=== PATIENT | female | born 1970 ===

== ENCOUNTER 2020-10-05 16:57 | Emergency (ER) | payer OTHER ==
[~2020-10-05] VITALS: Ht 157.5 cm; Wt 70.8 kg
[2020-10-05] MEDS ORDERED: ACETAMINOPHEN 325 MG TAB ONE (17:41)
[2020-10-05] MEDS ORDERED: ACETAMINOPHEN 325 MG TAB PO ONE (17:45)
[2020-10-05] MEDS ORDERED: SODIUM CHLORIDE 0.9% 1000ML 1,000 ML IV SCH (18:00)
[2020-10-05] MEDS ORDERED: IOPAMIDOL 370 MG/ML 200 ML INFUS..BTL INJ ONE (18:03)
[2020-10-05] MEDS ORDERED: SODIUM CHLORIDE 0.9% 50ML 50 ML ONE (18:04)
--- NOTE | 2020-10-05 18:27 | Emergency Department Note ---
History of Present Illnes History of Present Illness Chief Complaint: General Medicine Complaints History of Present Illness This is a 50 year old female, hypertension, hyperlipidemia, NIDDM, hypothyroidism who presents with urinary frequency and dysuria for the past 5 days, abdominal distention, and intermittent fever and chills for the past 3 days. Patient's temp on arrival is 101.6. She denies any cough, upper respiratory symptoms, chest pain, shortness of breath, nausea, vomiting, myalgias, or loss of sense of taste or smell. He is also experiencing some bilateral back pain from mid back down to the lower lumbar area, involving the bilateral paraspinal muscles, without vertebral or midline pain. The pain does not radiate into the buttocks or legs. 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 Pt had a COVID test performed at [facility] yesterday, and will receive the results in 2 days. Historian: Patient Arrival Mode: Car Assistant Produce Manager Required: No Onset (how long ago): day(s) (5) Location: generalized, urine, abdomen, back Quality: aching Radiation: Reports back, Reports abdomen; Denies neck, Denies extremity Onset quality: sudden Duration (how long): day(s) (5) Timing of current episode: constant Progression: unchanged Chronicity: new Context: Denies recent illness, Denies recent surgery, Denies trauma/injury Relieving factors: none Exacerbating factors: none Associated symptoms: Reports fever/chills, Reports malaise; Denies chest pain, Denies cough, Denies diaphoresis, Denies headaches, Denies nausea/vomiting, Denies shortness of breath, Denies weakness Treatments prior to arrival: none 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 Any updates have been documented here. (GARRET MARADIAGA MD) Past Medical History Recent Fever: Yes Clinical Suspicion of Infectio: Yes New/Unexplained Change in Ment: No Past Medical History: Hypertension, Diabetes, Hypothyroidism, Hyperlipedemia Past Surgical History: Cholecysctectomy, (x1) (GARRET MARADIAGA MD) Social History Smoking Cessation: Never Smoker Alcohol Use: None Any Illegal Drug Use: No TB Exposure/Symptoms: No Physically hurt or threatened: No (GARRET MARADIAGA MD) Family History Family history of heart diseas: No (GARRET MARADIAGA MD) Other Last Tetanus: UTD Any Pre-Existing Lines (PICC,: No Is patient up to date on immun: Yes (GARRET MARADIAGA MD) Review of Systems Review of Systems Constitutional: Reports chills, Reports fever EENTM: Denies ear pain, Denies throat pain Cardiovascular: Denies chest pain, Denies palpitations Respiratory: Denies cough, Denies dyspnea Gastrointestinal: Denies constipation, Denies diarrhea, Denies nausea, Denies vomiting, Denies other (abdominal distension) Genitourinary: Reports frequency; Denies hematuria Musculoskeletal: Reports back pain (paraspinal muscles from mid back, down to lower lumbar) Integumentary: Denies change in color, Denies rash Neurological: Denies headache, Denies numbness, Denies tingling Psychological: Reports no symptoms Endocrine: Reports no symptoms Hematological/Lymphatic: Reports no symptoms Review of other systems: All other systems negative (GARRET MARADIAGA MD) Endocrine: Reports increased urination Hematological/Lymphatic: Denies easy bruising (JOHNNA WYNN MD) Physical Exam Related Data Allergies: Coded Allergies: No Known Allergies (Unverified , 10/05/20) Triage Vital Signs Vital Signs Date Time Temp Pulse Resp B/P (MAP) Pulse Ox O2 Delivery O2 Flow Rate FiO2 10/05/20 17:19 101.6 121 16 157/102 98 Room Air Vital signs reviewed: Yes (GARRET MARADIAGA MD) Physical Exam CONSTITUTIONAL Constitutional: Present well-developed, Present well-nourished, Present obese; Absent distressed, Absent ill appearing HENT HENT: Present normocephalic, Present atraumatic, Present oropharynx clear/moist, Present nose normal; Absent nasal congestion, Absent rhinorrhea HENT L/R: Present left TM normal, Present right TM normal, Present left ext ear normal, Present right ext ear normal EYES Eyes: Reports PERRL, Reports conjunctivae normal NECK Neck: Present ROM normal, Present supple; Absent cervical adenopathy PULMONARY Pulmonary: Present effort normal, Present breath sounds normal CARDIOVASCULAR Cardiovascular: Present regular rhythm, Present heart sounds normal, Present capillary refill normal, Present normal rate; Absent murmur GASTROINTESTINAL Abdominal: Present soft, Present nontender, Present bowel sounds normal; Absent distension, Absent tender, Absent guarding, Absent left CVA tenderness, Absent right CVA tenderness GENITOURINARY Genitourinary: Present exam deferred SKIN Skin: Present warm, Present dry, Present other (small, healing insect bite on right lateral abdomen, slightly tender, fading, and without fluctuance); Absent rash MUSCULOSKELETAL Musculoskeletal: Present ROM normal NEUROLOGICAL Neurological: Present alert, Present oriented x 3; Absent cranial nerve deficit PSYCHOLOGICAL Psychological: Present mood/affect normal, Present judgement normal (GARRET MARADIAGA MD) Results Laboratory Laboratory CBC - nl except for WBC - 12.2; Metlac - nl, except for gluc = 223, Cl = 97; Lactic Acid = 1.98; Influenza A/B - negative; UA - negative, except for glu = 500, and pravin = trace; Lab results reviewed: Yes (GARRET MARADIAGA MD) Laboratory comments Flu neg, Lactate 1.98, Glu 223, WBC 12.2, UA: Glu 500, Trace Pravin, Negative Geraldo/Ket/Nit/Blood/Protein (JOHNNA WYNN MD) Imaging Imaging results reviewed: Yes Impressions [place] [id number] Patient Name: ALEXANDER WAN MR #: [id number] : 1970 Age/Sex: 50/F Req #: [id number] Adm Physician: Ordered by: GARRET MARADIAGA MD Report #: [id number] Location: [facility] Room/Bed: Procedure: [id number] HOPD/CXR 2 VIEW - HOPD Exam Date: 10/05/20 Exam Time: 1825 REPORT STATUS: Signed EXAMINATION: Chest PA and lateral views INDICATION: Fever and chills. Pain. COMPARISON: None FINDINGS: TUBES and LINES: None. LUNGS: Lungs are well inflated. Mild patchy density in the lung bases, right greater than left associated with mild elevation of the right hemidiaphragm, may represent subsegmental atelectasis, however, infectious etiology not excluded in appropriate clinical setting. PLEURA: No pleural effusion or pneumothorax. HEART AND MEDIASTINUM: The cardiomediastinal silhouette is unremarkable. BONES AND SOFT TISSUES: No acute osseous lesion. Soft tissues are unremarkable. UPPER ABDOMEN: No free air under the diaphragm. IMPRESSION: Bibasilar subsegmental atelectasis versus less likely infectious etiology in the proper clinical setting. Recommend chest PA and lateral views after treatment in 6-8 weeks to document resolution. Signed by: Dr. Anders Carranza M.D. on 10/05/2020 6:27 PM Dictated By: WHIT CARRANZA MD, MD 26 Transcribed By: RADHA on 10/05/201826 COPY TO: GARRET MARADIAGA MD~ ORAL CONTRAST: Water RADIATION DOSE: Total DLP: 707.30 ImagemGy*cm Estimated effective dose: (DLP x 0.015 x size factor) mSv COMPLICATIONS: None FINDINGS: LINES and TUBES: None. LOWER THORAX: Unremarkable HEPATOBILIARY: Mild diffuse low-attenuation of the hepatic parenchyma suggestive of mild steatosis. No focal hepatic lesions. No biliary ductal dilation. GALLBLADDER: There are cholecystectomy clips. SPLEEN: No splenomegaly. PANCREAS: No focal masses or ductal dilatation. ADRENALS: There is thickening of the right adrenal gland measuring 2.1 cm on image 37 series 2, possibly an adenoma. KIDNEYS/URETERS: There is mild heterogeneous enhancement of the left kidney compared to the right kidney with a subtly striated nephrogram. There is stranding of the perinephric fat with mild thickening of the Gerota's fascia, with mild thickening of the left the latero-coronal fascia. No hydronephrosis. No cystic or solid mass lesions. Linear hyperdensity corresponding to the collecting system in the right kidney most likely represent excreted contrast, however, a nonobstructing calculus in the interpolar region measuring 0.8 cm on coronal image 60 is not excluded. GI TRACT: No abnormal distention, wall thickening, or evidence of bowel obstruction. Appendix is normal. Scattered descending sigmoid colon diverticula. PELVIC ORGANS/BLADDER: Punctate myometrial calcification nonspecific. LYMPH NODES: No lymphadenopathy. VESSELS: Unremarkable. PERITONEUM / RETROPERITONEUM: No free air or fluid. BONES: Unremarkable. SOFT TISSUES: Unremarkable. IMPRESSION: 1. Mild inflammatory changes in the left flank, which in association with heterogeneous enhancement of the left kidney may reflect acute left pyelonephritis in the proper clinical setting; correlate with urinalysis. Inflammatory changes could also be related to descending colon diverticulitis, however, this is felt to be less likely. Signed by: Dr. Anders Carranza M.D. on 10/05/2020 7:03 PM Dictated By: WHIT CARRANZA MD, MD 02 Transcribed By: RADHA on 10/05/201902 COPY TO: GARRET MARADIAGA MD~ (GARRET MARADIAGA MD) Imaging Comments EXAMINATION: Chest PA and lateral views INDICATION: Fever and chills. Pain. COMPARISON: None FINDINGS: TUBES and LINES: None. LUNGS: Lungs are well inflated. Mild patchy density in the lung bases, right greater than left associated with mild elevation of the right hemidiaphragm, may represent subsegmental atelectasis, however, infectious etiology not excluded in appropriate clinical setting. PLEURA: No pleural effusion or pneumothorax. HEART AND MEDIASTINUM: The cardiomediastinal silhouette is unremarkable. BONES AND SOFT TISSUES: No acute osseous lesion. Soft tissues are unremarkable. UPPER ABDOMEN: No free air under the diaphragm. IMPRESSION: Bibasilar subsegmental atelectasis versus less likely infectious etiology in the proper clinical setting. Recommend chest PA and lateral views after treatment in 6-8 weeks to document resolution. Signed by: Dr. Anders Carranza M.D. on 10/05/2020 6:27 PM Dictated By: WHIT CARRANZA MD, MD 26 Transcribed By: RADHA on 10/05/20 1827 EXAM: CT Abdomen and Pelvis WITH contrast INDICATION: Abdominal pain. Fever and chills. COMPARISON: None. TECHNIQUE: Abdomen and pelvis were scanned utilizing a multidetector helical scanner from the lung base to the pubic symphysis after administration of IV contrast. Coronal and sagittal reformations were obtained. Routine protocol was performed. Scan was performed when during portal venous phase. IV CONTRAST: 100 cc Isovue-370 ORAL CONTRAST: Water RADIATION DOSE: Total DLP: 707.30 ImagemGy*cm Estimated effective dose: (DLP x 0.015 x size factor) mSv COMPLICATIONS: None FINDINGS: LINES and TUBES: None. LOWER THORAX: Unremarkable HEPATOBILIARY: Mild diffuse low-attenuation of the hepatic parenchyma suggestive of mild steatosis. No focal hepatic lesions. No biliary ductal dilation. GALLBLADDER: There are cholecystectomy clips. SPLEEN: No splenomegaly. PANCREAS: No focal masses or ductal dilatation. ADRENALS: There is thickening of the right adrenal gland measuring 2.1 cm on image 37 series 2, possibly an adenoma. KIDNEYS/URETERS: There is mild heterogeneous enhancement of the left kidney compared to the right kidney with a subtly striated nephrogram. There is stranding of the perinephric fat with mild thickening of the Gerota's fascia, with mild thickening of the left the latero-coronal fascia. No hydronephrosis. No cystic or solid mass lesions. Linear hyperdensity corresponding to the collecting system in the right kidney most likely represent excreted contrast, however, a nonobstructing calculus in the interpolar region measuring 0.8 cm on coronal image 60 is not excluded. GI TRACT: No abnormal distention, wall thickening, or evidence of bowel obstruction. Appendix is normal. Scattered descending sigmoid colon diverticula. PELVIC ORGANS/BLADDER: Punctate myometrial calcification nonspecific. LYMPH NODES: No lymphadenopathy. VESSELS: Unremarkable. PERITONEUM / RETROPERITONEUM: No free air or fluid. BONES: Unremarkable. SOFT TISSUES: Unremarkable. IMPRESSION: 1. Mild inflammatory changes in the left flank, which in association with heterogeneous enhancement of the left kidney may reflect acute left pyelonephritis in the proper clinical setting; correlate with urinalysis. Inflammatory changes could also be related to descending colon diverticulitis, however, this is felt to be less likely. Signed by: Dr. Anders Carranza M.D. on 10/05/2020 7:03 PM (JOHNNA WYNN MD) Assessment & Plan Medical Decision Making MDM - Fever, chills, leukocytosis, abdominal distension/discomfort, back pain, u rinary frequency without dysuria and minimal bacteria in the UA - Blood sugar is over 200, which can cause urinary frequency; - Flu test negative, mild leukocytosis of 12,000. - I suspect that patient may have pneumonia, possibly due to Covid. - Chest x-ray and CT scan of the abdomen and pelvis is pending, and will be followed up by Dr. Wynn, who will assume care of patient and finalize discharge plans. Patient's been updated, regarding the plan of care. 19:00 pt checked out to Dr. Wynn. (GARRET MARADIAGA MD) Reassessment Reassessment Checked out to me by Dr. Maradiaga pending imaging. Patient with DM presents with fever, chills, abdominal distention, urinary frequecy, and left low back / flank pain X 5 days. No sore throat, cough, runny nose, headache, ear ache, rash, N/V/D, loss of taste/smell, neck pain/stiffness. Denies sick contacts. 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 Had COVID test yesterday, but does not have results yet. Lungs CTA on exam. Completes full sentences. No CVA tenderness. Abd non-tender. HR 121 @ arrival with temp 101.6. VS improved to HR 102 with temp 100.8 after Tylenol and IVF. WBC 12 & normal lactate. CXR shows bilateral subsegmental atelectasis which could represent infection. CT abd shows mild inflammatory changes in the left flank, which in association with heterogeneous enhancement of the left kidney may reflect acute left pyelonephritis vs diverticulitis. Patient feels better and HR has improved. Suspect lung finding due to COVID. Will treat with zithromax and decadron. Will give Bactrim to cover urine and diverticulitis. While CT findings likely due to pyelonephritis UA not impressive, so will add flagyl to cover diverticulitis. Patient got first dose of Zithromax IV here. Gave patient strict return precautions and patient to have prompt followup. Patient is RN and has good medical knowledge of when to return. (JOHNNA WYNN MD) Assessment & Plan Final Impression: (1) Pneumonia (2) Pyelonephritis (3) Fever and chills (4) Diverticulitis (5) COVID-19 (GARRET MARADIAGA MD) Final Impression: (1) Fever and chills (2) Pneumonia (3) Pyelonephritis (4) Diverticulitis (5) COVID-19 (JOHNNA WYNN MD) Depart Disposition: HOME, SELF-CARE Last Vital Signs Date Time Temp Pulse Resp B/P (MAP) Pulse Ox O2 Delivery O2 Flow Rate FiO2 10/05/20 17:19 101.6 121 16 157/102 98 Room Air (GARRET MARADIAGA MD) Home Meds Active Scripts Sulfamethoxazole/Trimethoprim (BACTRIM DS TABLET) 1 Each Tablet, 1 TAB PO BID for 14 Days, #28 TAB Prov:JOHNNA WYNN MD 10/05/20 Metronidazole (METRONIDAZOLE) 500 Mg Tablet, 500 MG PO TID for 10 Days, #30 TAB Prov:JOHNNA WYNN MD 10/05/20 Dexamethasone (Decadron) 6 Mg Tablet, 1 TAB PO DAILY, #5 Prov:JOHNNA WYNN MD 10/05/20 Azithromycin (ZITHROMAX) 250 Mg Tablet, 1 TAB PO DAILY, #4 Prov:JOHNNA WYNN MD 10/05/20 Medications in the ED Acetaminophen 975 mg STK-MED ONCE .ROUTE ; Start 10/05/20 at 17:41; Stop 10/05/20 at 17:36; Status DC Acetaminophen 975 mg ONCE ONCE PO Last administered on 10/05/20at 17:43; Admin Dose 975 MG; Start 10/05/20 at 17:45; Stop 10/05/20 at 17:50; Status DC Iopamidol 74,000 mg STK-MED ONCE INJ ; Start 10/05/20 at 18:03; Stop 10/05/20 at 17:58; Status DC Sodium Chloride 50 ml @ ud STK-MED ONCE .ROUTE ; Start 10/05/20 at 18:04; Stop 10/05/20 at 17:58; Status DC Sodium Chloride 1,000 ml @ 0 mls/hr Q0M IV Last administered on 10/05/20at 18:14; Admin Dose 999 MLS/HR; Start 10/05/20 at 18:00; Stop 11/04/20 at 17:59 (GARRET MARADIAGA MD) GARRET MARADIAGA MD Oct 05, 2020 18:27 JOHNNA WYNN MD Oct 05, 2020 21:00
--- NOTE | 2020-10-05 18:31 | Diagnostic Imaging Report ---
EXAMINATION: Chest PA and lateral views INDICATION: Fever and chills. Pain. COMPARISON: None FINDINGS: TUBES and LINES: None. LUNGS: Lungs are well inflated. Mild patchy density in the lung bases, right greater than left associated with mild elevation of the right hemidiaphragm, may represent subsegmental atelectasis, however, infectious etiology not excluded in appropriate clinical setting. PLEURA: No pleural effusion or pneumothorax. HEART AND MEDIASTINUM: The cardiomediastinal silhouette is unremarkable. BONES AND SOFT TISSUES: No acute osseous lesion. Soft tissues are unremarkable. UPPER ABDOMEN: No free air under the diaphragm. IMPRESSION: Bibasilar subsegmental atelectasis versus less likely infectious etiology in the proper clinical setting. Recommend chest PA and lateral views after treatment in 6-8 weeks to document resolution. Signed by: Dr. Anders Marroquin M.D. on 10/05/2020 6:27 PM
--- NOTE | 2020-10-05 19:07 | Diagnostic Imaging Report ---
EXAM: CT Abdomen and Pelvis WITH contrast INDICATION: Abdominal pain. Fever and chills. COMPARISON: None. TECHNIQUE: Abdomen and pelvis were scanned utilizing a multidetector helical scanner from the lung base to the pubic symphysis after administration of IV contrast. Coronal and sagittal reformations were obtained. Routine protocol was performed. Scan was performed when during portal venous phase. IV CONTRAST: 100 cc Isovue-370 ORAL CONTRAST: Water RADIATION DOSE: Total DLP: 707.30 ImagemGy*cm Estimated effective dose: (DLP x 0.015 x size factor) mSv COMPLICATIONS: None FINDINGS: LINES and TUBES: None. LOWER THORAX: Unremarkable HEPATOBILIARY: Mild diffuse low-attenuation of the hepatic parenchyma suggestive of mild steatosis. No focal hepatic lesions. No biliary ductal dilation. GALLBLADDER: There are cholecystectomy clips. SPLEEN: No splenomegaly. PANCREAS: No focal masses or ductal dilatation. ADRENALS: There is thickening of the right adrenal gland measuring 2.1 cm on image 37 series 2, possibly an adenoma. KIDNEYS/URETERS: There is mild heterogeneous enhancement of the left kidney compared to the right kidney with a subtly striated nephrogram. There is stranding of the perinephric fat with mild thickening of the Gerota's fascia, with mild thickening of the left the latero-coronal fascia. No hydronephrosis. No cystic or solid mass lesions. Linear hyperdensity corresponding to the collecting system in the right kidney most likely represent excreted contrast, however, a nonobstructing calculus in the interpolar region measuring 0.8 cm on coronal image 60 is not excluded. GI TRACT: No abnormal distention, wall thickening, or evidence of bowel obstruction. Appendix is normal. Scattered descending sigmoid colon diverticula. PELVIC ORGANS/BLADDER: Punctate myometrial calcification nonspecific. LYMPH NODES: No lymphadenopathy. VESSELS: Unremarkable. PERITONEUM / RETROPERITONEUM: No free air or fluid. BONES: Unremarkable. SOFT TISSUES: Unremarkable. IMPRESSION: 1. Mild inflammatory changes in the left flank, which in association with heterogeneous enhancement of the left kidney may reflect acute left pyelonephritis in the proper clinical setting; correlate with urinalysis. Inflammatory changes could also be related to descending colon diverticulitis, however, this is felt to be less likely. Signed by: Dr. Anders Marroquin M.D. on 10/05/2020 7:03 PM
[2020-10-05] MEDS ORDERED: AZITHROMYCIN 500MG/NS 250 ML 250 ML IV ONE (20:00)
[2020-10-05] MEDS ORDERED: AZITHROMYCIN 500MG/NS 250 ML 250 ML ONE (20:17)
[2020-10-05] MEDS ORDERED: ZITHROMAX250 MG PO (21:02)
[2020-10-05] MEDS ORDERED: DECADRON6 MG PO (21:03)
[2020-10-05] MEDS ORDERED: LEVOFLOXACIN250 MG PO (21:06)
[2020-10-05] MEDS ORDERED: METRONIDAZOLE500 MG PO (21:08)
[2020-10-05] MEDS ORDERED: BACTRIM DS TAB1 EACH PO ×2 (21:09→21:13)
[2020-10-05 21:40] VITALS: BP 114/71
== END 2020-10-05 21:42 | disposition home or self-care (01) ==
LOC: FSED 17:20
DX: U07.1 COVID-19 (principal); R50.9 Fever, unspecified; J18.9 Pneumonia, unspecified organism; N12 Tubulo-interstitial nephritis, not specified as acute or chronic; K57.92 Diverticulitis of intestine, part unspecified, without perforation or abscess without bleeding
CPT/HCPCS: 71046; 74177; 80053; 81003; 81025; 85025; 87400; 99284; J0456; J7030; Q9967